=== PATIENT | male | born 1945 | race Caucasian/White ===

== ENCOUNTER 2023-12-18 14:52 | Outpatient (CLI) | payer MEDICARE ==
[~2023-12-18 14:52] MED LIST: AMIT50TA15 PO; ATOR40TA PO; IBUP-24 PO; OMEP20CA4 PO; PER10325T PO; WALKERFR
== END 2023-12-18 23:59 | disposition home or self-care (01) ==
LOC: RAD 14:52
PROVIDERS: ATTEND Nurse Practitioner Family
DX: M25.552 Pain in left hip (principal); Z96.642 Presence of left artificial hip joint
CPT/HCPCS: 73502

== ENCOUNTER 2023-12-23 13:05 | Outpatient (CLI) | payer MEDICARE | END 2023-12-23 23:59 | disposition home or self-care (01) | LOC: RAD 13:05 | PROVIDERS: ATTEND Nurse Practitioner Family | DX: M17.12 Unilateral primary osteoarthritis, left knee (principal); M25.562 Pain in left knee | CPT/HCPCS: 73564 ==

== ENCOUNTER 2025-02-15 08:20 | Outpatient (CLI) | payer MEDICARE ==
[2025-02-15] MEDS ORDERED: iohexol 300mg/ml 100ml inj. ONE (08:44)
--- NOTE | 2025-02-15 12:35 | RADIOLOGY REPORT ---
EXAM: CT CT CHEST ABDOMEN PELVIS IV CON INDICATION: RIGHT GROIN PAIN;RIGHT INGUINAL PAIN TECHNIQUE: Volumetric multidetector CT images of the chest, abdomen and pelvis were obtained after the administration of IV contrast. All CT scans at this facility use dose modulation, iterative reconstruction, and/or weight based dosing when appropriate to reduce radiation dose to as low as reasonably achievable. COMPARISON: None FINDINGS: LOWER NECK: Unremarkable LYMPH NODES/MEDIASTINUM: No abnormal lymph nodes by CT size criteria. CARDIOVASCULAR: Normal cardiac size. No pericardial effusion. No aneurysmal dilatation of the great vessels. Coronary artery calcifications. LUNG PARENCHYMA/PLEURAL SPACE: No pleural effusion or pneumothorax. No consolidation, suspicious focal airspace opacity, or suspicious nodules. CHEST WALL: Unremarkable. LIVER: Small focal, well circumscribed hepatic hypodensities, which are nonspecific but statistically most likely represent small hepatic cysts. GALLBLADDER/BILIARY TREE: No cholelithiasis. SPLEEN: Unremarkable. PANCREAS: Unremarkable. ADRENAL GLANDS: Unremarkable KIDNEYS: No hydronephrosis. BLADDER: Limited evaluation secondary to streak artifact PELVIC ORGANS: Limited evaluation secondary to streak artifact. BOWEL/MESENTERY: Stomach is decompressed however question proximal gastric wall thickening. [id number]-muomozzu stool burden ASCITES: Absent LYMPHADENOPATHY: No pathologically enlarged lymph nodes by CT size criteria VASCULATURE: No aneurysmal dilatation. ABDOMINAL WALL: Unremarkable. MUSCULOSKELETAL: No acute fracture or aggressive focal osseous lesion. Multifocal degenerative change of the visualized spine. bilateral total hip arthroplasties IMPRESSION: 1. No CT evidence of an acute chest, abdominal/pelvic process. 2. [id number] stool burden. 3. Correlate clinically to exclude constipation. 4. Stomach is decompressed however question proximal gastric wall thickening. 5. Correlate with clinical exam to exclude gastritis.
== END 2025-02-15 23:59 | disposition home or self-care (01) ==
LOC: RAD 08:20
PROVIDERS: ATTEND Nurse Practitioner Family
DX: R10.31 Right lower quadrant pain (principal)
CPT/HCPCS: 71260; 74177; Q9967